=== PATIENT | female | born 1970 | race Caucasian/White ===

== ENCOUNTER 2017-08-24 20:31 | Emergency (ER) | payer MEDICAID, OTHER ==
[2017-08-24 20:31] VITALS: BMI 29.2
[2017-08-24 20:37] VITALS: RESP 20
[2017-08-24 21:26] LABS: HCG,QUALITATIVE URINE NEGATIVE (NEGATIVE)
[2017-08-24 21:28] LABS: SQUAMOUS EPITHIAL 13 /hpf (0-5); URINE BACTERIA FEW (<OCC); URINE BILIRUBIN NEGATIVE (NEGATIVE); URINE CLARITY Hazy (Clear); URINE GLUCOSE (UA) NORMAL (Normal); URINE LEUKOCYTE ESTERASE NEG Leu/uL (Negative); URINE PROTEIN NEGATIVE (NEGATIVE); URINE UROBILINOGEN NORMAL mg/dL (0.2-1.0)
[2017-08-24 21:31] LABS: URINE BLOOD 1+ (NEGATIVE)
[2017-08-24 21:32] LABS: URINE COLOR YELLOW (YELLOW)
--- NOTE | 2017-08-24 21:52 | C.PDOC ---
History Of Present Illness Patient is a 46 y/o female who presents to the ED with a complaint of a vague sore throat and subjective fever for 1/2 day. Patient denies taking any medications. No other physical complaints at this time. Time Seen by Provider: 08/24/17 20:35 Chief Complaint (Nursing): Abdominal Pain Past Medical History Vital Signs: Last Vital Signs Temp 99 F 08/24/17 21:59 Pulse 84 08/24/17 21:59 Resp 20 08/24/17 21:59 BP 140/80 08/24/17 21:59 Pulse Ox 98 08/24/17 21:59 - Medical History PMH: Diabetes, Hypercholesterolemia, Hyperthyroidism, Hypothyroidism, Schizophrenia Denies: Hepatitis, HIV, HTN, Seizures, Sexually Transmitted Disease Surgical History: - [facility] INDIVID PSYCHOTHERAP NEC (09/06/13) OTHER GROUP THERAPY (09/06/13) Family History: States: Stroke (father) - Social History Hx Tobacco Use: No Hx Alcohol Use: Yes Hx Substance Use: No - Immunization History Hx Tetanus Toxoid Vaccination: No Hx Influenza Vaccination: Yes Hx Pneumococcal Vaccination: No Review Of Systems Constitutional: Positive for: Fever (subjective) ENT: Positive for: Throat Pain (vague) Physical Exam - Physical Exam Appears: Well, Non-toxic, No Acute Distress Skin: Normal Color, Warm, Dry Head: Atraumatic, Normacephalic Oral Mucosa: Moist Teeth: Normal Dentition Gingiva: Normal Appearing Throat: Normal, No Erythema, No Exudate Neck: Supple Lymphatic: Normal Exam Chest: Symmetrical Cardiovascular: Rhythm Regular, No Murmur Respiratory: Normal Breath Sounds, No Rales, No Rhonchi, No Wheezing Gastrointestinal/Abdominal: Soft, No Tenderness Neurological/Psych: Oriented x3, Normal Speech, Normal Cognition ED Course And Treatment - Laboratory Results Lab Interpretation: Normal (ua neg.) Urine POC: Negative O2 Sat by Pulse Oximetry: 100 Pulse Ox Interpretation: Normal Progress Note: Tylenol administered. Medical Decision Making Medical Decision Making: normal exam ? viral syndrome UA neg preg neg. Disposition Doctor Will See Patient In The: Office Counseled Patient/Family Regarding: Studies Performed, Diagnosis - Disposition Referrals: [facility] [Outside] [facility] [Outside] [facility] [Outside] Disposition: HOME/ ROUTINE Disposition Time: 21:51 Condition: GOOD Additional Instructions: continue motrin 400-600 mg every 6 hours as needed OR Tylenol 1000 mg every 6 hours as needed drink plenty of fluids follow-up in our outpatient Clinic as needed. Urinalysis and tests are NEGATIVE today Instructions: Sore Throat in Adults Forms: [facility] (Eth[place]ian) - Clinical Impression Clinical Impression: Sore throat (viral) - Scribe Statement The provider has reviewed the documentation as recorded by the Scribe Essence Holland All medical record entries made by the Chelseaibzenaida were at my direction and personally dictated by me. I have reviewed the chart and agree that the record accurately reflects my personal performance of the history, physical exam, medical decision making, and the department course for this patient. I have also personally directed, reviewed, and agree with the discharge instructions and disposition.
[2017-08-24 22:00] VITALS: BP 140/80; PULSE 84; TEMP 99
[2017-08-25 00:26] VITALS: O2SAT 100
== END 2017-08-24 21:59 | disposition home or self-care (01) ==
LOC: C.ER 20:31
DX: J02.8 Acute pharyngitis due to other specified organisms (principal)